=== PATIENT | male | born 1955 ===

== ENCOUNTER 2017-04-08 07:52 | Emergency (ER) | payer BC ==
[~2017-04-08] VITALS: Ht 182.9 cm; Wt 108.9 kg
== END 2017-04-08 11:06 | disposition home or self-care (01) ==
LOC: ER 07:52
DX: S61.422A Laceration with foreign body of left hand, initial encounter (principal); S90.32XA Contusion of left foot, initial encounter; W45.8XXA Other foreign body or object entering through skin, initial encounter; Y93.89 Activity, other specified; Y92.89 Other specified places as the place of occurrence of the external cause; Y99.8 Other external cause status